=== PATIENT | female | born 1950 | race Caucasian/White ===

== ENCOUNTER 2024-05-27 05:28 | Day surgery (SDC) | payer OTHER ==
[2024-05-27 09:59] VITALS: BMI 26.2
[2024-05-27] MEDS ORDERED: ONDANSETRON 4 MG/2 ML VIAL IVPUSH PRN ×2 (15:02→17:52)
[2024-05-27] MEDS ORDERED: oxyCODONE HCL 5 MG TABLET PO PRN (15:02)
[2024-05-27] MEDS ORDERED: LACTATED RINGERS SOLUTION 1,000 ML IV SCH ×2 (15:15→18:00)
[2024-05-27] MEDS ORDERED: LIDOCAINE HCL 1%, 10 MG/ML (20ML VIAL) ONE (16:20)
[2024-05-27] MEDS ORDERED: PROPOFOL 20 ML ONE ×2 (16:24→17:32)
[2024-05-27] MEDS ORDERED: ceFAZolin SODIUM 1 GM VIAL ONE (17:07)
[2024-05-27] MEDS: ceFAZolin SODIUM 1 GM VIAL IVPB ONE (17:10)
[2024-05-27] MEDS: LIDOCAINE HCL 1%, 10 MG/ML (20ML VIAL) INF ONE (17:40)
[2024-05-27 18:18] VITALS: TEMP 97.1
[2024-05-27 19:16] VITALS: RESP 20
[2024-05-27 19:19] VITALS: BP 158/85; PULSE 75
== END 2024-05-27 19:30 | disposition home or self-care (01) ==
LOC: JASU-SURG 05:28
PROVIDERS: ATTEND Surgery
PROC: 0HBT0ZX Excision of Right Breast, Open Approach, Diagnostic (ICD-10-PCS; principal; 2024-05-27 12:00)
DX: N60.11 Diffuse cystic mastopathy of right breast (principal); N64.89 Other specified disorders of breast; R92.8 Other abnormal and inconclusive findings on diagnostic imaging of breast
CPT/HCPCS: 19281; 76098-TC-FY; 88307-TC; 88341-TC; 88342-TC; 93005; 93010; 94760